=== PATIENT | female | born 1955 | race Two or more races ===

== ENCOUNTER 2023-04-07 15:42 | Outpatient (CLI) | payer OTHER | END 2023-04-07 15:54 | disposition home or self-care (01) | LOC: SONOGRAMA 15:42 | PROVIDERS: ATTEND Pathology Anatomic Pathology & Clinical Pathology | DX: D34 Benign neoplasm of thyroid gland (principal); E04.1 Nontoxic single thyroid nodule; E07.89 Other specified disorders of thyroid ==